=== PATIENT | male | born 2000 | race Caucasian/White ===

== ENCOUNTER 2018-03-01 21:55 | Emergency (ER) | payer MEDICAID ==
[2018-03-01 22:29] VITALS: TEMP 96.9
[2018-03-01 22:39] LABS: BASOPHILS % (AUTO) 1 % (0-3); EOSINOPHILS % (AUTO) 0 % (0-9); HEMATOCRIT 47 % (39-53); HEMOGLOBIN 15.1 gm/dl (13.5-17.7); LYMPHOCYTES % (AUTO) 19.6 % (10-50); MEAN CORPUSCULAR HEMOGLOBIN 26.9 pg (27.0-32.0); MEAN CORPUSCULAR HGB CONC 31.9 gm/dl (32.0-36.0); MEAN CORPUSCULAR VOLUME 84 fL (80-100); MONOCYTES % (AUTO) 11.8 % (0-12); NEUTROPHILS % (AUTO) 67.2 % (37-80)
[2018-03-01 23:09] LABS: ALBUMIN 4.2 gm/dl (3.4-5.0); ALKALINE PHOSPHATASE 87 IU/L (46-116); ALT 25 IU/L (14-63); AST 16 IU/L (15-37); BILIRUBIN,TOTAL 0.8 mg/dl (0.2-1.0); BLOOD UREA NITROGEN 15 mg/dl (7-18); CALCIUM 8.9 mg/dl (8.5-10.1); CARBON DIOXIDE 24.3 mEq/L (21-32); CHLORIDE 103 mMol/L (98-107); CREATININE 0.96 mg/dl (0.80-1.30); GLUCOSE 88 mg/dl (74-106); POTASSIUM 3.5 mMol/L (3.5-5.1); SODIUM 140 mMol/L (136-145); THYROID STIMULATING HORMONE 1.982 uIU/ml (0.358-3.740); TOTAL PROTEIN 8.2 gm/dl (6.4-8.2)
[2018-03-02 00:27] LABS: ALCOHOL < 0.003 gm/dl (0.000-0.08)
[2018-03-02 00:30] LABS: APPEARANCE,URINE Clear; BILIRUBIN,URINE 2+ (NEGATIVE); COLOR,URINE Dark yellow; GLUCOSE, URINE (UA) NEGATIVE (NEGATIVE); KETONES,URINE 4+ (NEGATIVE); LEUKOCYTE ESTERASE ,URINE NEGATIVE (NEGATIVE); NITRATE,URINE NEGATIVE (NEGATIVE); OCCULT BLOOD,URINE NEGATIVE (NEG-TRACE); PH,URINE 6.5
[2018-03-02 00:34] LABS: BACTERIA 1+ (< 1+); CRYSTALS NEGATIVE (0-3 AVE/HPF); EPITHELIAL CELLS 0-2 (SQUAMOUS); RBC,URINE 0-2 (0-3AV/HPF); TRICYCLIC ANTIDEPRESSANTS POSITIVE (NEGATIVE)
[2018-03-02 00:35] LABS: AMPHETAMINES NEGATIVE (NEGATIVE); BARBITUATES NEGATIVE (NEGATIVE); BENZODIAZEPINES NEGATIVE (NEGATIVE); CANNABINOL(THC) NEGATIVE (NEGATIVE); COCAINE(COC) NEGATIVE (NEGATIVE); METHADONE NEGATIVE (NEGATIVE); METHAMPHETAMINES NEGATIVE (NEGATIVE); OPIATES(OPI) NEGATIVE (NEGATIVE); OXYCODONE(OXY) NEGATIVE (NEGATIVE); PROPOXYPHENE(PPX) NEGATIVE (NEGATIVE)
[2018-03-02 00:36] LABS: ICTOTEST,URINE NEGATIVE (NEGATIVE)
[2018-03-02 01:24] VITALS: BP 128/82; PULSE 86; RESP 18; O2SAT 98
[2018-03-02] MEDS ORDERED: HALOPERIDOL LACTATE 5 MG/ML SOL IM ONE (02:52)
[2018-03-02] MEDS ORDERED: HALOPERIDOL LACTATE 5 MG/ML SOL ONE (02:53)
== END 2018-03-02 03:35 | disposition short-term general hospital (02) | DRG 914 ==
LOC: ED 21:55
DX: T14.91XA Suicide attempt, initial encounter (principal); R44.0 Auditory hallucinations
CPT/HCPCS: 36415; 80053; 80305; 80307; 81001; 84443; 85025; 99282; 99284; J1630